=== PATIENT | female | born 1990 | race Caucasian/White ===

== ENCOUNTER 2020-02-17 19:29 | Emergency (ER) | payer MEDICAID ==
[~2020-02-17] VITALS: Ht 160 cm; Wt 67.0 kg
[2020-02-17 19:41] VITALS: BP 134/95
[2020-02-17] MEDS ORDERED: LORA-269 PO (21:45)
== END 2020-02-17 22:00 | disposition home or self-care (01) ==
LOC: ER 19:30
DX: F41.9 Anxiety disorder, unspecified (principal); Z88.5 Allergy status to narcotic agent; Z79.899 Other long term (current) drug therapy
CPT/HCPCS: 99283